=== PATIENT | female | born 2000 | race Caucasian/White ===

== ENCOUNTER 2020-07-17 22:55 | Emergency (ER) | payer BC ==
--- NOTE | 2020-07-17 23:59 | EDM.PDOC ---
ED HPI GENERAL MEDICAL PROBLEM - General Chief Complaint: GRANITE CUTTER Problem Stated Complaint: 18 WEEKS PAIN BY BELLY BUTTON Time Seen by Provider: 07/17/20 22:58 - History of Present Illness INITIAL COMMENTS - FREE TEXT/NARRATIVE: Patient is an otherwise well 20-year-old female G1, P0 at not quite 18 weeks gestation who is presenting with 3 days of a periumbilical discomfort that she describes as a pulling that worsens when she tries to lay on either side and improves when she lays on her back no nausea or vomiting no fevers no chills no chest pain or shortness of breath no prior abdominal surgeries. Patient has fol low-up with Dr. Johnson is her OB. Her next appointment is July 29. Middle Abdomen Pain Score (Numeric/FACES): 6 - Related Data Allergies Allergy/AdvReac Type Severity Reaction Status Date / Time No Known Allergies Allergy Verified 07/17/20 23:45 Home Meds: Home Meds Amoxicillin/Potassium Clav [Amoxicillin-Clav ER 1,000-62.5] 1 each PO BID 7 Days #14 tab.er.12h 07/18/20 [Rx] Past Medical History - Past Health History Medical/Surgical History: Denies Medical/Surgical History Respiratory History: Reports: Asthma GRANITE CUTTER History: Reports: Other GRANITE CUTTER History: 18 wks Social & Family History - Family History Family Medical History: No Pertinent Family History - Tobacco Use Tobacco Use Status *Q: Never Tobacco User Second Hand Smoke Exposure: No - Recreational Drug Use Recreational Drug Use: No ED ROS GENERAL - Review of Systems Review Of Systems: See Below Free Text/Narrative/Comment: General: No fever. Skin: No rash. Eyes: No vision problems. ENT: No sore throat. Neck: No neck stiffness. Respiratory: No shortness of breath. Cardiac: No chest pain. Gastrointestinal: No nausea, vomiting or abdominal pain. Urinary: No dysuria. Musculoskeletal: No myalgias/arthralgias. Neurologic: No headache. ED EXAM, GENERAL - Physical Exam Exam: See Below Free Text/Narrative:: General Appearance: No acute distress, appears comfortable Skin: No rash HEENT: Normocephalic/atraumatic, sclera anicteric, mucous membranes moist Neck: Normal range of motion Chest and Lungs: Bilateral breath sounds, clear to auscultation Cardiovascular: Regular rate and rhythm, no murmur Abdomen: Soft, palpable nontender fundus Neurologic: Awake, alert, no obvious deficits, moving all extremities Psychiatric: Appropriate, cooperative Course - Vital Signs Last Recorded V/S: Last Vital Signs Temp 97.2 F 07/17/20 23:38 Pulse 95 07/18/20 01:06 Resp 18 07/18/20 01:06 BP 128/78 07/18/20 01:06 Pulse Ox 100 07/18/20 01:06 - Orders/Labs/Meds Labs: Laboratory Tests 07/17/20 07/18/20 07/18/20 Range/Units 23:45 00:15 00:15 WBC 8.48 (4.0-11.0) K/uL RBC 4.12 L (4.30-5.90) M/uL Hgb 12.4 (12.0-16.0) g/dL Hct 35.9 L (36.0-46.0) % MCV 87.1 (80.0-98.0) fL MCH 30.1 (27.0-32.0) pg MCHC 34.5 (31.0-37.0) g/dL RDW Std Deviation 39.4 (28.0-62.0) fl RDW Coeff of Donna 13 (11.0-15.0) % Plt Count 246 (150-400) K/uL MPV 10.20 (7.40-12.00) fL Neut % (Auto) 63.6 (48.0-80.0) % Lymph % (Auto) 28.1 (16.0-40.0) % [place] % (Auto) 6.7 (0.0-15.0) % Eos % (Auto) 1.2 (0.0-7.0) % Baso % (Auto) 0.4 (0.0-1.5) % Neut # (Auto) 5.4 (1.4-5.7) K/uL Lymph # (Auto) 2.4 (0.6-2.4) K/uL [place] # (Auto) 0.6 (0.0-0.8) K/uL Eos # (Auto) 0.1 (0.0-0.7) K/uL Baso # (Auto) 0.0 (0.0-0.1) K/uL Sodium 136 (136-145) mmol/L Potassium 4.1 (3.5-5.1) mmol/L Chloride 104 (98-107) mmol/L Carbon Dioxide 22.9 (21.0-32.0) mmol/L BUN 14 (7.0-18.0) mg/dL Creatinine 0.5 L (0.6-1.0) mg/dL Est Cr Clr Drug Dosing TNP Estimated GFR (MDRD) > 60.0 ml/min Glucose 98 (74-106) mg/dL Calcium 8.3 L (8.5-10.1) mg/dL Total Bilirubin 0.2 (0.2-1.0) mg/dL AST 12 L (15-37) IU/L ALT 32 (14-63) IU/L Alkaline Phosphatase 33 L (46-116) U/L Total Protein 6.6 (6.4-8.2) g/dL Albumin 2.9 L (3.4-5.0) g/dL Globulin 3.7 (2.6-4.0) g/dL Albumin/Globulin Ratio 0.8 L (0.9-1.6) Urine Color YELLOW Urine Appearance CLEAR Urine pH 6.5 (5.0-8.0) Ur Specific [place] 1.025 (1.001-1.035) Urine Protein NEGATIVE (NEGATIVE) mg/dL Urine Glucose (UA) NEGATIVE (NEGATIVE) mg/dL Urine Ketones NEGATIVE (NEGATIVE) mg/dL Urine Occult Blood NEGATIVE (NEGATIVE) Urine Nitrite NEGATIVE (NEGATIVE) Urine Bilirubin NEGATIVE (NEGATIVE) Urine Urobilinogen 0.2 (<2.0) EU/dL Ur Leukocyte Esterase NEGATIVE (NEGATIVE) Urine RBC NONE SEEN (0-2/HPF) Urine WBC 0-3 (0-5/HPF) Ur Epithelial Cells FEW (NONE-FEW) Urine Bacteria OCCASIONAL (NEGATIVE) Departure - Departure Time of Disposition: 02:00 Disposition: Home, Self-Care 01 Condition: Good Clinical Impression: Asymptomatic bacteriuria during , Abdominal wall abscess - Discharge Information *PRESCRIPTION DRUG MONITORING PROGRAM REVIEWED*: Not Applicable *COPY OF PRESCRIPTION DRUG MONITORING REPORT IN PATIENT PENELOPE: Not Applicable Prescriptions: Amoxicillin/Potassium Clav [Amoxicillin-Clav ER 1,000-62.5] 1 each PO BID 7 Days #14 tab.er.12h Referrals: Homer Altman MD [Primary Care Provider] - Forms: ED Department Discharge Additional Instructions: Your ultrasound showed a collection of fluid in your abdominal wall where you are tender that could represent an abdominal wall abscess. For this reason you have been placed on Augmentin. Please note that a prescription for Keflex was erroneously sent to [facility] pharmacy as well. Please do not fill the Keflex but fill the Augmentin instead. Please call Dr. Johnson's office on Sunday and make an appointment for this coming or Sunday. If you develop worsening pain fevers or chills please call Dr. Johnson's office or return to the ER. The following information is given to patients seen in the emergency department who are being discharged to home. This information is to outline your options for follow-up care. We provide all patients seen in our emergency department with a follow-up referral. The need for follow-up, as well as the timing and circumstances, are variable depending upon the specifics of your emergency department visit. If you don't have a primary care physician on staff, we will provide you with a referral. We always advise you to contact your personal physician following an emergency department visit to inform them of the circumstance of the visit and for follow-up with them and/or the need for any referrals to a consulting specialist. The emergency department will also refer you to a specialist when appropriate. This referral assures that you have the opportunity for follow-up care with a specialist. All of these measure are taken in an effort to provide you with optimal care, which includes your follow-up. Under all circumstances we always encourage you to contact your private physician who remains a resource for coordinating your care. When calling for follow-up care, please make the office aware that this follow-up is from your recent emergency room visit. If for any reason you are refused follow-up, please contact the [facility] Emergency Department at and asked to speak to the emergency department charge nurse. Sepsis Event Note (ED) - Evaluation Sepsis Screening Result: No Definite Risk - Focused Exam Vital Signs: Vital Signs Temp Pulse Resp BP Pulse Ox 07/18/20 01:06 95 18 128/78 100 07/17/20 23:38 97.2 F 112 H 16 138/86 100 - Assessment/Plan Assessment:: 20-year-old female presenting with abdominal pain as described. I would favor round ligament pain. However, multiple other etiologies considered as well given the tender fundus abruption could be considered but the patient has no risk factors for this. No fevers or chills over suggest appendicitis no inferior abdominal tenderness or right lower quadrant tenderness. Biliary pathology considered but no nausea or vomiting and no right upper quadrant findings on exam. Given her labs including urinalysis and ultrasound been ordered. If these are unremarkable the patient likely safe for discharge. No findings that would suggest pyelonephritis. No vaginal bleeding or discharge that would suggest threatened AB or need for pelvic exam. 0156: Patient's ultrasound demonstrates a single live intrauterine . It also shows a contained fluid collection in the anterior abdominal wall that is consistent with an abdominal wall abscess. There is no fever there is no white count there is focal tenderness in that region. However there are no overlying skin changes. I discussed this in full with Dr. Jones who is covering for Dr. Johnson. Given the lack of any leukocytosis lack of fever and lack of overlying skin changes would not plan to attempt any type of drainage at this time. At the same time additional imaging is unlikely to further define this lesion. We will start the patient on Augmentin. The patient will follow up in their clinic on or Sunday of this week for reassessment and repeat ultrasound. This was discussed with the patient in detail she expressed understanding.
[2020-07-18 00:42] LABS: BLOOD UREA NITROGEN,BUN 14 mg/dL (7.0-18.0); CARBON DIOXIDE,CO2 22.9 mmol/L (21.0-32.0); CHLORIDE,CL 104 mmol/L (98-107); GLUCOSE RANDOM 98 mg/dL (74-106); POTASSIUM,K 4.1 mmol/L (3.5-5.1); SODIUM,NA 136 mmol/L (136-145)
--- NOTE | 2020-07-18 01:40 | US ---
INDICATION: Midline periumbilical pain/fundal tenderness. TECHNIQUE: Limited transabdominal two-dimensional grayscale ultrasound examination. COMPARISON: None FINDINGS: There is a living fetus with gestational age of 17 weeks 6 days by LMP and 18 weeks 3 days by today`s measurements. EDC based on LMP is 12/19/2020. BPD: 4.0 cm, 18 weeks 2 days Head circumference: 15.3 cm, 18 weeks 2 days Abdominal circumference: 12.6 cm, 18 weeks 2 days Femur length: 2.9 cm, 18 weeks 6 days The weight is estimated at 241 grams. The heart rate is measured at 146 beats per minute and the rhythm appears regular. The amniotic fluid volume is within normal limits. The placenta is anterior and superior to the cervical os. There is no evidence of previa. Superior to the umbilicus and apparently within the abdominal wall is a 5.7 x 2.3 x 1.5 cm fluid collection with mixed echogenicity and a relatively thick, hyperemic wall. Appearance is concerning for abscess. IMPRESSION: 1. Living fetus with gestational age of 17 weeks 6 days by LMP and 18 weeks 3 days by today`s measurements. EDC based on LMP is 12/19/2020. 2. 5.7 x 2.3 x 1.5 cm supraumbilical fluid collection apparently located in the abdominal wall and concerning for an abscess. Dictated by Minh Mace MD @ Jul 19 2020 8:24AM Signed by Dr. Minh Mace @ Jul 19 2020 8:32AM
[2020-07-18] MEDS ORDERED: Amoxicillin/Clavulanate K 875-125 MG Tab PO ONE (01:59)
== END 2020-07-18 02:13 | disposition home or self-care (01) ==
LOC: MW.ED 22:55
DX: O99.712 Diseases of the skin and subcutaneous tissue complicating pregnancy, second trimester (principal); L02.211 Cutaneous abscess of abdominal wall; O99.891 Other specified diseases and conditions complicating pregnancy; R82.71 Bacteriuria; O99.512 Diseases of the respiratory system complicating pregnancy, second trimester; J45.909 Unspecified asthma, uncomplicated; Z3A.18 18 weeks gestation of pregnancy
CPT/HCPCS: 36415; 76815; 80053; 81001; 85025; 99284; A9270

== ENCOUNTER 2020-12-09 11:10 | Inpatient (IN) | payer BC ==
[2020-12-09] MEDS ORDERED: Sodium Chloride 0.9% 10 ML Syringe FLUSH PRN (11:37)
[2020-12-09] MEDS ORDERED: Sodium Chloride 0.9% 2.5 ML Syringe FLUSH PRN (11:37)
[2020-12-09] MEDS ORDERED: Methylergonovine 0.2 MG/1 ML Amp IM PRN (11:37)
[2020-12-09] MEDS ORDERED: Terbutaline 1 MG/ML SDV SUBCUT PRN (11:37)
[2020-12-09] MEDS ORDERED: Sodium Chloride 0.9% 10 ML SDV IV PRN (11:37)
[2020-12-09] MEDS ORDERED: Tranexamic Acid 1,000 MG in Sodium Chloride 0.9% 100 ML IV PRN (11:37)
[2020-12-09] MEDS ORDERED: Water For Irrigation,Sterile 1,000 ML Container IRR PRN (11:37)
[2020-12-09] MEDS ORDERED: Nalbuphine 10 MG/1 ML Vial IVPUSH PRN (11:37)
[2020-12-09] MEDS ORDERED: Ondansetron 4 MG/2 ML SDV IVPUSH PRN (11:37)
[2020-12-09] MEDS ORDERED: Misoprostol 200 MCG Tab PO PRN (11:37)
[2020-12-09] MEDS ORDERED: Lidocaine 1% 50 ML MDV INJECT PRN (11:37)
[2020-12-09] MEDS ORDERED: Butorphanol 1 MG/ML SDV IVPUSH PRN (11:37)
[2020-12-09] MEDS ORDERED: Carboprost Tromethamine 250 MCG/1 ML Amp IM PRN (11:37)
[2020-12-09] MEDS ORDERED: Oxytocin/0.9 % Sodium Chloride 30 UNIT/500 ML BAG IV SCH ×2 (11:45)
[2020-12-09] MEDS ORDERED: Misoprostol 25 MCG (1/4 of 100 MCG) Tab VAG PRN (12:30)
[2020-12-09 13:50] LABS: BLOOD UREA NITROGEN,BUN 11 mg/dL (7.0-18.0); CARBON DIOXIDE,CO2 23.1 mmol/L (21.0-32.0); CHLORIDE,CL 104 mmol/L (98-107); GLUCOSE RANDOM 78 mg/dL (74-106); POTASSIUM,K 4.3 mmol/L (3.5-5.1); SODIUM,NA 137 mmol/L (136-145)
[2020-12-09] MEDS: Misoprostol 25 MCG (1/4 of 100 MCG) Tab VAG PRN ×2 (16:59→21:47)
[2020-12-09] MEDS: Lactated Ringers 1,000 ML IV SCH (23:18)
[2020-12-09] MEDS ORDERED: Ropivacaine HCl/PF 200 ML ONE (23:50)
[2020-12-09] MEDS ORDERED: Bupivacaine 0.25% 10 ML SDV ONE (23:50)
--- NOTE | 2020-12-10 00:23 | PCM.PREANE ---
Preanesthetic Assessment - Anesthesia/Transfusion/Family Hx Anesthesia History: No Prior Anesthesia Family History of Anesthesia Reaction: No Transfusion History: No Prior Transfusion(s) - Physical Assessment NPO Status Date: 12/10/20 NPO Status Time: 00:00 Height: 5 ft 4 in Weight: 279 lb ASA Class: 2 Airway Class: Mallampati = 3 - Lab Values: Laboratory Last Values WBC 7.82 K/uL (4.0-11.0) 12/09/20 11:44 RBC 4.44 M/uL (4.30-5.90) 12/09/20 11:44 Hgb 13.2 g/dL (12.0-16.0) 12/09/20 11:44 Hct 38.3 % (36.0-46.0) 12/09/20 11:44 MCV 86.3 fL (80.0-98.0) 12/09/20 11:44 MCH 29.7 pg (27.0-32.0) 12/09/20 11:44 MCHC 34.5 g/dL (31.0-37.0) 12/09/20 11:44 RDW Std Deviation 44.2 fl (28.0-62.0) 12/09/20 11:44 RDW Coeff of Donna 14 % (11.0-15.0) 12/09/20 11:44 Plt Count 217 K/uL (150-400) 12/09/20 11:44 MPV 11.60 fL (7.40-12.00) 12/09/20 11:44 Nucleated RBC % 0.0 /100WBC 12/09/20 11:44 Nucleated RBCs # 0 K/uL 12/09/20 11:44 Sodium 137 mmol/L (136-145) 12/09/20 11:44 Potassium 4.3 mmol/L (3.5-5.1) 12/09/20 11:44 Chloride 104 mmol/L (98-107) 12/09/20 11:44 Carbon Dioxide 23.1 mmol/L (21.0-32.0) 12/09/20 11:44 BUN 11 mg/dL (7.0-18.0) 12/09/20 11:44 Creatinine 0.5 mg/dL (0.6-1.0) L 12/09/20 11:44 Est Cr Clr Drug Dosing 152.40 mL/min 12/09/20 11:44 Estimated GFR (MDRD) > 60.0 ml/min 12/09/20 11:44 Glucose 78 mg/dL (74-106) 12/09/20 11:44 Uric Acid 3.9 mg/dL (2.6-7.2) 12/09/20 11:44 Calcium 9.1 mg/dL (8.5-10.1) 12/09/20 11:44 Total Bilirubin 0.4 mg/dL (0.2-1.0) 12/09/20 11:44 AST 17 IU/L (15-37) 12/09/20 11:44 ALT 24 IU/L (14-63) 12/09/20 11:44 Alkaline Phosphatase 289 U/L (46-116) H 12/09/20 11:44 Total Protein 5.9 g/dL (6.4-8.2) L 12/09/20 11:44 Albumin 2.7 g/dL (3.4-5.0) L 12/09/20 11:44 Globulin 3.2 g/dL (2.6-4.0) 12/09/20 11:44 Albumin/Globulin Ratio 0.8 (0.9-1.6) L 12/09/20 11:44 Ur Random Creatinine 74.0 mg/dL 12/09/20 11:44 U Random Total Protein 14.1 mg/dL (<11.9) H 12/09/20 11:44 Protein/Creatinin Ratio 0.2 12/09/20 11:44 SARS-CoV-2 RNA (ZULEYKA) NEGATIVE (NEGATIVE) 12/09/20 11:44 Blood Type A POSITIVE 12/09/20 11:44 Antibody Screen NEGATIVE 12/09/20 11:44 - Allergies Allergies/Adverse Reactions: Allergies Allergy/AdvReac Type Severity Reaction Status Date / Time No Known Allergies Allergy Verified 07/17/20 23:45 - Blood Blood Available: Yes Product(s) Available: None, PRBC - Anesthesia Plan Pre-Op Medication Ordered: None - Acknowledgements Anesthesia Type Planned: Epidural Pt an Appropriate Candidate for the Planned Anesthesia: Yes Alternatives and Risks of Anesthesia Discussed w Pt/Guardian: Yes Pt/Guardian Understands and Agrees with Anesthesia Plan: Yes PreAnesthesia Questionnaire - Past Health History Medical/Surgical History: Denies Medical/Surgical History Respiratory History: Reports: Asthma Other Respiratory History: "Last used albuterol inhaler prior to " [employer] 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 OB/BYN History: 18 wks - Past Surgical History Respiratory Surgical History: Reports: None Neurological Surgical History: Reports: None - SUBSTANCE USE Tobacco Use Status *Q: Never Tobacco User Tobacco Use Within Last Twelve Months: No Second Hand Smoke Exposure: No Recreational Drug Use History: Yes Recreational Drug Type: Reports: Marijuana/Hashish - HOME MEDS Home Medications: Home Meds Amoxicillin/Potassium Clav [Amoxicillin-Clav ER 1,000-62.5] 1 each PO BID 7 Days #14 tab.er.12h 07/18/20 [Rx] - CURRENT (IN HOUSE) MEDS Current Meds: Current Medications Butorphanol Tartrate (Butorphanol 1 Mg/Ml Sdv) 1 mg IVPUSH Q1H PRN PRN Reason: Pain (severe 7-10) Carboprost Tromethamine (Carboprost Tromethamine 250 Mcg/1 Ml Amp) 250 mcg IM ASDIRECTED PRN PRN Reason: Post Hemorrhage Oxytocin/Sodium Chloride (Oxytocin 30 Unit/500 Ml-Ns) 30 unit in 500 mls @ 999 mls/hr IV TITRATE AMRIT Tranexamic Acid 1,000 mg/ (Sodium Chloride) 110 mls @ 660 mls/hr IV ONETIME PRN PRN Reason: Bleeding Oxytocin/Sodium Chloride (Oxytocin 30 Unit/500 Ml-Ns) 30 unit in 500 mls @ 2 mls/hr IV TITRATE AMRIT; Protocol Lactated Ringer's (Ringers, Lactated) 1,000 mls @ 150 mls/hr IV ASDIRECTED AMRIT Last Admin: 12/09/20 23:18 Dose: 999 mls/hr Documented by: Lidocaine HCl (Lidocaine 1% 50 Ml Mdv) 50 ml INJECT ONETIME PRN PRN Reason: Laceration repair Methylergonovine Maleate (Methylergonovine 0.2 Mg/1 Ml Amp) 0.2 mg IM ASDIRECTED PRN PRN Reason: Post Hemorrhage Misoprostol (Misoprostol 200 Mcg Tab) 200 mcg PO ONETIME PRN PRN Reason: Post Hemorrhage Misoprostol (Misoprostol 25 Mcg (1/4 Of 100 Mcg) Tab) 25 mcg VAG ONETIME PRN PRN Reason: Cervical Ripening Last Admin: 12/09/20 12:54 Dose: 25 mcg Documented by: Misoprostol (Misoprostol 25 Mcg (1/4 Of 100 Mcg) Tab) 25 mcg VAG Q4H PRN PRN Reason: Cervical Ripening Last Admin: 12/09/20 21:47 Dose: 25 mcg Documented by: Nalbuphine HCl (Nalbuphine 10 Mg/1 Ml Vial) 10 mg IVPUSH Q1H PRN PRN Reason: Pain (severe 7-10) Ondansetron HCl (Ondansetron 4 Mg/2 Ml Sdv) 4 mg IVPUSH Q6H PRN PRN Reason: Nausea/Vomiting Sodium Chloride (Sodium Chloride 0.9% 10 Ml Syringe) 10 ml FLUSH ASDIRECTED PRN PRN Reason: Keep Vein Open Sodium Chloride (Sodium Chloride 0.9% 2.5 Ml Syringe) 2.5 ml FLUSH ASDIRECTED PRN PRN Reason: Keep Vein Open Sodium Chloride (Sodium Chloride 0.9% 10 Ml Sdv) 10 ml IV ASDIRECTED PRN PRN Reason: IV Use Sterile Water (Water For Irrigation,Sterile 1,000 Ml Container) 1,000 ml IRR ASDIRECTED PRN PRN Reason: delivery Terbutaline Sulfate (Terbutaline 1 Mg/Ml Sdv) 0.25 mg SUBCUT ASDIRECTED PRN PRN Reason: Tacysystole Discontinued Medications Bupivacaine HCl (Bupivacaine 0.25% 10 Ml Sdv) Confirm Administered Dose 10 ml .ROUTE .STK-MED ONE Stop: 12/09/20 23:51 Ropivacaine (Naropin 0.2%) Confirm Administered Dose 200 mls @ as directed .ROUTE .STK-MED ONE Stop: 12/09/20 23:51 - Pre-Procedure Checklist Attending Provider Aware: Yes Chart Reviewed: Yes Consent Signed: Yes Labs Reviewed: Yes VS/FHR Reviewed: Yes Patient Identification Confirmation Method: Reports: Verbal Patient Pt an Appropriate Candidate for the Planned Anesthesia: Yes Alternatives and Risks of Anesthesia Discussed w Pt/Guardian: Yes - Procedure Procedure Start Date: 12/09/20 Procedure Start Time: 23:[address]: Reports: Blood Pressure, Heart Rate, SPO2 Functional IV: Yes Safety Measures: Reports: Patient Identified, Procedure Verified, Site Verified, Procedure Time Out Patient Position: Reports: Sitting Prep: Reports: Betadine x3, Sterile Drape Local Anesthetic: Reports: Intradermal Wheal w Lidocaine 1% Regional Placement Level: Reports: L3-4 Needle: Reports: 17 g Touhy Approach: Reports: Midline Technique: Reports: ABRAHAM Plastic Syringe Parasthesia: Reports: None Fluid Obtained: Reports: None Test Dose Time: 00:01 Test Dose Medication: Reports: Lidocaine 1.5% w Epinephrine 1:200,000 Test Dose Response: Reports: Negative Loading Dose Time: 00:00 Loading Dose Medication: bupivicaine 0.25% 10cc Loading Dose Patient Position: sitting Continuous Infusion Start Time: 00:10 Continuous Infusion Medication: ropivicaine 0.2% Continuous Infusion Rate: 16 Continuous Infusion PCS Bolus Option: 4 Continuous Infusion Lockout Dose (cc/hr): 32 Patient Position Post Placement: Reports: Supline/CATARINO VS and FHR Monitored in Unit Post Placement: Yes Procedure End Date: 12/10/20 Procedure End Time: 00:53
[2020-12-10] MEDS: Lactated Ringers 1,000 ML IV SCH (06:36)
[2020-12-10] MEDS ORDERED: Bisacodyl 10 MG Supp RECTAL PRN (08:11)
[2020-12-10] MEDS ORDERED: Ibuprofen 400 MG Tab PO PRN (08:11)
[2020-12-10] MEDS ORDERED: oxyCODONE 5 MG Tab PO PRN (08:11)
[2020-12-10] MEDS ORDERED: Docusate Sodium 100 MG Cap PO PRN (08:11)
[2020-12-10] MEDS ORDERED: Lanolin 100% Cream 7 GM Tube TOP PRN (08:11)
[2020-12-10] MEDS ORDERED: Acetaminophen 500 MG Tab PO PRN (08:11)
[2020-12-10] MEDS ORDERED: Ibuprofen 800 MG Tab PO PRN (08:11)
[2020-12-10] MEDS: Acetaminophen 500 MG Tab PO PRN ×2 (09:57→14:12)
[2020-12-10] MEDS: Benzocaine/Menthol 20%-0.5% Spray 78 GM Cannister TOP PRN (09:58)
[2020-12-10] MEDS: Witch Hazel Medicated Pads 40/Jar TOP PRN ×2 (09:59→17:38)
--- NOTE | 2020-12-10 13:53 | OR ---
SURGEON: Milan Vazquez MD DATE OF PROCEDURE: 12/10/2020 INDICATIONS FOR PROCEDURE: A 20-year-old G1, P0 at 38 weeks and 0 days, admitted for induction of labor for gestational hypertension. The patient was found to have mildly elevated blood pressures in the office. She was not symptomatic for preeclampsia. Labs were completed, which were normal. was complicated by obesity, intrauterine growth restriction with abdominal circumference measuring 9th percentile. She also had left ventricular echogenic focus, otherwise had normal anatomy ultrasound. She received 3 doses of Cytotec for induction of labor and became 3cm dilated. She then received Pitocin started progressing quickly. She also received an epidural with good pain control. When she was around 5 cm, she started to have variable decelerations that would respond to repositioning. She became fully dilated. AROM was performed with clear fluid. She then quickly made descent and began pushing with contractions. PREOPERATIVE DIAGNOSES: 1. Sage intrauterine at 38 weeks and 0 days. 2. Gestational hypertension. 3. Intrauterine growth restriction. 4. Recurrent variable decelerations. POSTOPERATIVE DIAGNOSES: 1. Sage intrauterine at 38 weeks and 0 days. 2. Gestational hypertension. 3. Intrauterine growth restriction. 4. Recurrent variable decelerations. PROCEDURE PERFORMED: 1. Normal spontaneous vaginal delivery. 2. Repair of first-degree laceration. FINDINGS: Viable male infant, scores of 7 and 9. weight of 2890 g. A true knot was noted in the umbilical cord. ANESTHESIOLOGIST: Dr. Hermilo Gill. ANESTHESIA: Epidural. ESTIMATED BLOOD LOSS: 200 mL. DESCRIPTION OF PROCEDURE: The patient pushed with contractions for approximately 30 minutes, had good descent. The head delivered in occiput anterior position, restituted ROT. Anterior shoulder delivered easily followed by posterior shoulder and remaining body. No nuchal cord was noted. There was a true knot that was loosely tied in the umbilical cord. The baby was pink, crying, and moving all extremities immediately after delivery. The umbilical cord was clamped and cut after 60 seconds and no longer pulsating. Umbilical cord gases were obtained. Placenta was removed with gentle traction on the umbilical cord, was examined to be intact with 3-vessel cord. Vagina and perineum were examined. She had a first-degree laceration that was repaired with 0 Vicryl in usual fashion. Hemostasis was confirmed after the repair. The fundus was firm at the umbilicus and the bleeding was light. The patient tolerated the procedure well, was given care instructions. REBECCA BURNS /[id number] MTDD
[2020-12-11 05:47] LABS: BLOOD UREA NITROGEN,BUN 12 mg/dL (7.0-18.0); CARBON DIOXIDE,CO2 24.6 mmol/L (21.0-32.0); CHLORIDE,CL 108 mmol/L (98-107); GLUCOSE RANDOM 94 mg/dL (74-106); POTASSIUM,K 4.5 mmol/L (3.5-5.1); SODIUM,NA 141 mmol/L (136-145)
--- NOTE | 2020-12-11 06:36 | PCM.PNPP ---
- General Info Date of Service: 12/11/20 Subjective Update: 20yo P1 s/p PPD1 Denies any complain, denies headache , RUQ pain and BV . BP 120 -150s/60s- 80s Bottlefeeding Normal lochia Functional Status: Reports: Pain Controlled, Tolerating Diet, Ambulating, Urinating - Review of Systems General: Reports: No Symptoms HEENT: Reports: No Symptoms Pulmonary: Reports: No Symptoms Cardiovascular: Reports: No Symptoms Gastrointestinal: Reports: No Symptoms Genitourinary: Reports: No Symptoms Musculoskeletal: Reports: No Symptoms Skin: Reports: No Symptoms Neurological: Reports: No Symptoms Psychiatric: Reports: No Symptoms - General Info Date of Service: 12/11/20 - Patient Data Vital Signs - Most Recent: Last Vital Signs Temp 36.2 C 12/10/20 20:41 Pulse 90 12/10/20 20:41 Resp 18 12/10/20 20:41 BP 149/85 H 12/11/20 00:30 Pulse Ox 97 12/10/20 20:41 Weight - Most Recent: 126.552 kg I&O - Last 24 Hours: Intake & Output 12/10/20 12/10/20 12/11/20 14:59 22:59 06:59 Intake Total 950 Balance 950 Lab Results - Last 24 Hours: Laboratory Results - last 24 hr 12/11/20 12/11/20 Range/Units 04:55 04:55 WBC 8.66 (4.0-11.0) K/uL RBC 3.69 L (4.30-5.90) M/uL Hgb 11.2 L (12.0-16.0) g/dL Hct 32.5 L (36.0-46.0) % MCV 88.1 (80.0-98.0) fL MCH 30.4 (27.0-32.0) pg MCHC 34.5 (31.0-37.0) g/dL RDW Std Deviation 45.9 (28.0-62.0) fl RDW Coeff of Donna 14 (11.0-15.0) % Plt Count 206 (150-400) K/uL MPV 11.50 (7.40-12.00) fL Neut % (Auto) 58.3 (48.0-80.0) % Lymph % (Auto) 32.3 (16.0-40.0) % [place] % (Auto) 7.7 (0.0-15.0) % Eos % (Auto) 1.5 (0.0-7.0) % Baso % (Auto) 0.2 (0.0-1.5) % Neut # (Auto) 5.0 (1.4-5.7) K/uL Lymph # (Auto) 2.8 H (0.6-2.4) K/uL [place] # (Auto) 0.7 (0.0-0.8) K/uL Eos # (Auto) 0.1 (0.0-0.7) K/uL Baso # (Auto) 0.0 (0.0-0.1) K/uL Nucleated RBC % 0.0 /100WBC Nucleated RBCs # 0 K/uL Sodium 141 (136-145) mmol/L Potassium 4.5 (3.5-5.1) mmol/L Chloride 108 H (98-107) mmol/L Carbon Dioxide 24.6 (21.0-32.0) mmol/L BUN 12 (7.0-18.0) mg/dL Creatinine 0.6 (0.6-1.0) mg/dL Est Cr Clr Drug Dosing 127.00 mL/min Estimated GFR (MDRD) > 60.0 ml/min Glucose 94 (74-106) mg/dL Calcium 8.1 L (8.5-10.1) mg/dL Total Bilirubin 0.3 (0.2-1.0) mg/dL AST 24 (15-37) IU/L ALT 24 (14-63) IU/L Alkaline Phosphatase 217 H (46-116) U/L Total Protein 5.4 L (6.4-8.2) g/dL Albumin 2.3 L (3.4-5.0) g/dL Globulin 3.1 (2.6-4.0) g/dL Albumin/Globulin Ratio 0.7 L (0.9-1.6) Med Orders - Current: Current Medications Acetaminophen (Acetaminophen 500 Mg Tab) 500 mg PO Q4H PRN PRN Reason: Pain (mild 1-3) Acetaminophen (Acetaminophen 500 Mg Tab) 1,000 mg PO Q4H PRN PRN Reason: Pain (mild 1-3) Last Admin: 12/10/20 14:12 Dose: 1,000 mg Documented by: Benzocaine/Menthol (Benzocaine/Menthol 20%-0.5% [place] 78 Gm Cannister) 78 gm TOP ASDIRECTED PRN PRN Reason: Perineal Comfort Measure Last Admin: 12/10/20 09:58 Dose: 1 bottle Documented by: Bisacodyl (Bisacodyl 10 Mg Supp) 10 mg RECTAL ONETIME PRN PRN Reason: Constipation Docusate Sodium (Docusate Sodium 100 Mg Cap) 100 mg PO Q12H PRN PRN Reason: Constipation Last Admin: 12/10/20 17:38 Dose: 100 mg Documented by: Emollient Ointment (Lanolin 100% Cream 7 Gm Tube) 0 gm TOP ASDIRECTED PRN PRN Reason: Sore Nipples Ibuprofen (Ibuprofen 400 Mg Tab) 400 mg PO Q4H PRN PRN Reason: Pain (mild 1-3) Ibuprofen (Ibuprofen 800 Mg Tab) 800 mg PO Q6H PRN PRN Reason: Pain (mild 1-3) Last Admin: 12/10/20 14:11 Dose: 800 mg Documented by: Oxycodone HCl (Oxycodone 5 Mg Tab) 5 mg PO Q2H PRN PRN Reason: Pain (severe 7-10) Sodium Chloride (Sodium Chloride 0.9% 10 Ml Syringe) 10 ml FLUSH ASDIRECTED PRN PRN Reason: Keep Vein Open Sodium Chloride (Sodium Chloride 0.9% 2.5 Ml Syringe) 2.5 ml FLUSH ASDIRECTED PRN PRN Reason: Keep Vein Open Sodium Chloride (Sodium Chloride 0.9% 10 Ml Sdv) 10 ml IV ASDIRECTED PRN PRN Reason: IV Use Witch Senait (Witch Senait Medicated Pads 40/Jar) 1 pad TOP ASDIRECTED PRN PRN Reason: comfort care Last Admin: 12/10/20 17:38 Dose: 1 pad Documented by: Discontinued Medications Bupivacaine HCl (Bupivacaine 0.25% 10 Ml Sdv) Confirm Administered Dose 10 ml .ROUTE .STK-MED ONE Stop: 12/09/20 23:51 Butorphanol Tartrate (Butorphanol 1 Mg/Ml Sdv) 1 mg IVPUSH Q1H PRN PRN Reason: Pain (severe 7-10) Carboprost Tromethamine (Carboprost Tromethamine 250 Mcg/1 Ml Amp) 250 mcg IM ASDIRECTED PRN PRN Reason: Post Hemorrhage Oxytocin/Sodium Chloride (Oxytocin 30 Unit/500 Ml-Ns) 30 unit in 500 mls @ 999 mls/hr IV TITRATE AMRIT Tranexamic Acid 1,000 mg/ (Sodium Chloride) 110 mls @ 660 mls/hr IV ONETIME PRN PRN Reason: Bleeding Oxytocin/Sodium Chloride (Oxytocin 30 Unit/500 Ml-Ns) 30 unit in 500 mls @ 2 mls/hr IV TITRATE AMRIT; Protocol Last Titration: 12/10/20 07:40 Dose: 999 munits/min, 999 mls/hr Documented by: Lactated Ringer's (Ringers, Lactated) 1,000 mls @ 150 mls/hr IV ASDIRECTED AMRIT Last Infusion: 12/10/20 07:01 Dose: 150 mls/hr Documented by: Ropivacaine (Naropin 0.2%) Confirm Administered Dose 200 mls @ as directed .KARLOS JoinerRUST-MED ONE Stop: 12/09/20 23:51 Lidocaine HCl (Lidocaine 1% 50 Ml Mdv) 50 ml INJECT ONETIME PRN PRN Reason: Laceration repair Methylergonovine Maleate (Methylergonovine 0.2 Mg/1 Ml Amp) 0.2 mg IM ASDIRECTED PRN PRN Reason: Post Hemorrhage Misoprostol (Misoprostol 200 Mcg Tab) 200 mcg PO ONETIME PRN PRN Reason: Post Hemorrhage Misoprostol (Misoprostol 25 Mcg (1/4 Of 100 Mcg) Tab) 25 mcg VAG ONETIME PRN PRN Reason: Cervical Ripening Last Admin: 12/09/20 12:54 Dose: 25 mcg Documented by: Misoprostol (Misoprostol 25 Mcg (1/4 Of 100 Mcg) Tab) 25 mcg VAG Q4H PRN PRN Reason: Cervical Ripening Last Admin: 12/09/20 21:47 Dose: 25 mcg Documented by: Nalbuphine HCl (Nalbuphine 10 Mg/1 Ml Vial) 10 mg IVPUSH Q1H PRN PRN Reason: Pain (severe 7-10) Ondansetron HCl (Ondansetron 4 Mg/2 Ml Sdv) 4 mg IVPUSH Q6H PRN PRN Reason: Nausea/Vomiting Last Admin: 12/10/20 07:24 Dose: 4 mg Documented by: Sterile Water (Water For Irrigation,Sterile 1,000 Ml Container) 1,000 ml IRR ASDIRECTED PRN PRN Reason: delivery Terbutaline Sulfate (Terbutaline 1 Mg/Ml Sdv) 0.25 mg SUBCUT ASDIRECTED PRN PRN Reason: Tacysystole - Infant Interaction Support Person: , Mother - Recovery Exam Fundal Tone: Firm Fundal Level: At Umbilicus Fundal Placement: Midline Lochia Amount: Small Lochia Color: Rubra/Red Episiotomy/Laceration: Approximated Bladder Status: Nonpalpable Urinary Elimination: Voided - Exam General: Alert HEENT: Pupils Equal Neck: Supple Lungs: Clear to Auscultation Cardiovascular: Regular Rate, Regular Rhythm GI/Abdominal Exam: Normal Bowel Sounds Neurological: No New Focal Deficit Psy/Mental Status: Alert - Problem List & Annotations (1) Vaginal delivery SNOMED Code(s): 561604830 Code(s): O80 - ENCOUNTER FOR FULL-TERM UNCOMPLICATED DELIVERY Status: Acute Current Visit: Yes - Problem List Review Problem List Initiated/Reviewed/Updated: No - Assessment Assessment:: 20yo P1 s/p PPD1 , GHTN (mild range bps) , Bottlefeeding - Plan Plan:: Routine Discharge home today preclampsia precautions Follow up BP in 1 week
[2020-12-11] MEDS: Benzocaine/Menthol 20%-0.5% Spray 78 GM Cannister TOP PRN (08:13)
[2020-12-11] MEDS: Witch Hazel Medicated Pads 40/Jar TOP PRN (08:14)
== END 2020-12-11 12:10 | disposition home or self-care (01) | DRG 560 ==
LOC: MW.OB 11:10 → MW.OBCHECK 11:10 → MW.OB 11:37 → OBSVTOIN 12-10 08:11 → MW.OB 12-10 13:09
PROVIDERS: ADMIT Obstetrics & Gynecology; ATTEND Obstetrics & Gynecology
PROC: 10E0XZZ Delivery of Products of Conception, External Approach (ICD-10-PCS; principal; 2020-12-10)
PROC: 0HQ9XZZ Repair Perineum Skin, External Approach (ICD-10-PCS; 2020-12-10)
PROC: 10907ZC Drainage of Amniotic Fluid, Therapeutic from Products of Conception, Via Natural or Artificial Opening (ICD-10-PCS; 2020-12-10)
PROC: 3E0R3BZ Introduction of Anesthetic Agent into Spinal Canal, Percutaneous Approach (ICD-10-PCS; 2020-12-10)
PROC: 00HU33Z Insertion of Infusion Device into Spinal Canal, Percutaneous Approach (ICD-10-PCS; 2020-12-10)
DX: O13.4 Gestational [pregnancy-induced] hypertension without significant proteinuria, complicating childbirth (principal); Z3A.38 38 weeks gestation of pregnancy; Z37.0 Single live birth; O36.5930 Maternal care for other known or suspected poor fetal growth, third trimester, not applicable or unspecified; O76 Abnormality in fetal heart rate and rhythm complicating labor and delivery; O70.0 First degree perineal laceration during delivery; O99.214 Obesity complicating childbirth; E66.9 Obesity, unspecified; Z20.822 Contact with and (suspected) exposure to COVID-19
CPT/HCPCS: 36415; 51702; 59025; 59409; 80053; 82570; 84156; 84550; 85025; 85027; 86592; 86850; 86900; 86901; A9270-GY; J2405; J2590; J2795; J3490; J7120; U0002

== ENCOUNTER 2023-09-03 09:59 | Inpatient (IN) | payer BC ==
[2023-09-03] MEDS ORDERED: Water For Irrigation,Sterile 1,000 ML Container IRR PRN (18:30)
[2023-09-03] MEDS ORDERED: Tranexamic Acid IN NACL,ISO-OS 1,000 MG in Premix Bag 1 BAG IV PRN (18:30)
[2023-09-03] MEDS ORDERED: Sodium Chloride 0.9% 20 ML SDV IV PRN (18:30)
[2023-09-03] MEDS ORDERED: Butorphanol 2 MG/ML SDV IVPUSH PRN (18:30)
[2023-09-03] MEDS ORDERED: Sodium Chloride 0.9% 10 ML Syringe FLUSH PRN (18:30)
[2023-09-03] MEDS ORDERED: Ondansetron 4 MG/2 ML SDV IVPUSH PRN (18:30)
[2023-09-03] MEDS ORDERED: Oxytocin/0.9 % Sodium Chloride 30 UNIT/500 ML BAG IV SCH (18:30)
[2023-09-03] MEDS ORDERED: Lidocaine 1% 50 ML MDV INJECT PRN (18:30)
[2023-09-03] MEDS ORDERED: Sodium Chloride 0.9% 2.5 ML Syringe FLUSH PRN (18:30)
[2023-09-03] MEDS ORDERED: Methylergonovine 0.2 MG/1 ML Amp IM PRN (18:30)
[2023-09-03] MEDS ORDERED: Misoprostol 200 MCG Tab PO PRN (18:30)
[2023-09-03] MEDS ORDERED: Carboprost Tromethamine 250 MCG/1 mL Vial IM PRN (18:30)
[2023-09-03] MEDS ORDERED: Terbutaline 1 MG/ML SDV SUBCUT PRN (18:32)
[2023-09-03] MEDS ORDERED: ePHEDrine 50 MG/ML SDV IVPUSH PRN ×2 (20:24)
[2023-09-03] MEDS ORDERED: Phenylephrine HCl 0.5 MG/5 ML AMP IVPUSH PRN (20:24)
[2023-09-03] MEDS ORDERED: Sodium Chloride 0.9% 100 ML ONE (23:44)
[2023-09-03] MEDS ORDERED: Ampicillin 2 GM Vial ONE (23:44)
[2023-09-03] MEDS: Lactated Ringers 1,000 ML IV SCH (23:45)
[2023-09-03] MEDS: Ampicillin 2 GM in Sodium Chloride 0.9% 100 ML IV ONE (23:58)
[2023-09-04 00:13] LABS: HEMATOCRIT 32.3 % (37.0-47.0); HEMOGLOBIN 11.1 g/dL (12.0-16.0); MEAN CORPUSCULAR HEMOGLOBIN 29.2 pg (28.0-32.0); MEAN CORPUSCULAR HGB CONC 34.4 g/dL (32.0-36.0); MEAN PLATELET VOLUME 10.8 fL (9.4-12.3); PLATELET COUNT,PLT 222 K/uL (150-400); WHITE BLOOD CELL COUNT,WBC 8.64 K/uL (3.9-11.3)
[2023-09-04] MEDS: Misoprostol 25 MCG (1/4 of 100 MCG) Tab VAG PRN (00:17)
[2023-09-04] MEDS: Ampicillin 1 GM in Sodium Chloride 0.9% 50 ML IV SCH (04:46)
[2023-09-04] MEDS ORDERED: dexmedeTOMIDine HCl 200 MCG/2 ML SDV ONE (07:19)
[2023-09-04] MEDS: Ropivacaine HCl/PF 400 MG in Premix Bag 1 BAG EPIDUR SCH (07:23)
[2023-09-04] MEDS: Oxytocin/0.9 % Sodium Chloride 30 UNIT/500 ML BAG IV SCH (07:24)
[2023-09-04] MEDS ORDERED: Benzocaine/Menthol 20%-0.5% Spray 78 GM Cannister TOP PRN (09:58)
[2023-09-04] MEDS ORDERED: Witch Hazel Medicated Pads 40/Jar TOP PRN (09:58)
[2023-09-04] MEDS ORDERED: Lanolin 100% Cream 7 GM Tube TOP PRN (09:58)
[2023-09-04] MEDS ORDERED: Ibuprofen 800 MG Tab PO PRN (09:58)
[2023-09-04] MEDS ORDERED: Methylergonovine 0.2 MG/1 ML Amp IM PRN (09:58)
[2023-09-04] MEDS ORDERED: Tranexamic Acid IN NACL,ISO-OS 1,000 MG in Premix Bag 1 BAG IV PRN (09:58)
[2023-09-04] MEDS ORDERED: Docusate Sodium 100 MG Cap PO PRN (09:58)
[2023-09-04 10:36] LABS: PH,UMBILICAL ARTERIAL 7.198 (7.18-7.38); PH,UMBILICAL VENOUS 7.283 (7.25-7.45)
[2023-09-04] MEDS: Acetaminophen 500 MG Tab PO PRN (14:28)
[2023-09-05 06:10] LABS: HEMATOCRIT 30.9 % (37.0-47.0); HEMOGLOBIN 10.4 g/dL (12.0-16.0)
== END 2023-09-05 15:28 | disposition home or self-care (01) | DRG 560 ==
LOC: MW.OB 09:59 → OBSVTOIN 09-04 09:59 → MW.OB 09-04 13:30
PROVIDERS: ADMIT Obstetrics & Gynecology; ATTEND Obstetrics & Gynecology
PROC: 10E0XZZ Delivery of Products of Conception, External Approach (ICD-10-PCS; principal; 2023-09-04)
PROC: 3E033VJ Introduction of Other Hormone into Peripheral Vein, Percutaneous Approach (ICD-10-PCS; 2023-09-04)
PROC: 3E0P7VZ Introduction of Hormone into Female Reproductive, Via Natural or Artificial Opening (ICD-10-PCS; 2023-09-04)
DX: O99.214 Obesity complicating childbirth (principal); O13.4 Gestational [pregnancy-induced] hypertension without significant proteinuria, complicating childbirth; Z3A.38 38 weeks gestation of pregnancy; Z37.0 Single live birth; O69.81X0 Labor and delivery complicated by cord around neck, without compression, not applicable or unspecified; O99.52 Diseases of the respiratory system complicating childbirth; J45.909 Unspecified asthma, uncomplicated
CPT/HCPCS: 01967; 36415; 59025; 59409; 82803; 85014; 85018; 85027; 86592; 86850; 86900; 86901; A9270-GY; J0290; J2590; J2795; J3490; J7120

== ENCOUNTER 2025-03-15 11:33 | Emergency (ER) | payer BC ==
[2025-03-15 12:10] LABS: BASOPHILS ABSOLUTE AUTO 0.09 K/uL (0.00-0.20); BASOPHILS PERCENT AUTO 1.1 % (0.0-1.0); EOSINOPHILS ABSOLUTE AUTO 0.21 K/uL (0.00-0.45); EOSINOPHILS PERCENT AUTO 2.5 % (0.0-6.0); IMMATURE GRAN ABSOLUTE AUTO 0.05 K/uL (0.00-0.05); IMMATURE GRAN PERCENT AUTO 0.6 % (0.0-0.4); LYMPHOCYTES ABSOLUTE AUTO 3.70 K/uL (1.00-4.80); LYMPHOCYTES PERCENT AUTO 43.2 % (24.0-44.0); MEAN PLATELET VOLUME 10.1 fL (9.4-12.3); MONOCYTES ABSOLUTE AUTO 0.58 K/uL (0.00-0.80); MONOCYTES PERCENT AUTO 6.8 % (0.0-8.0); NEUTROPHILS ABSOLUTE AUTO 3.93 K/uL (1.80-7.70); NEUTROPHILS PERCENT AUTO 45.8 % (41.0-71.0); NRBC ABSOLUTE 0.00 K/uL (0.00-0.02); NRBC PERCENT 0.0 /100WBC (0.0-0.2); PLATELET COUNT,PLT 265 K/uL (150-400); RED BLOOD CELL COUNT 4.46 M/uL (4.10-5.30); WHITE BLOOD CELL COUNT,WBC 8.56 K/uL (3.9-11.3)
[2025-03-15 12:31] LABS: A/G RATIO 1.1 (0.9-1.6); ALANINE AMINOTRANSFERASE,ALT 27.0 IU/L (14-63); ASPARTATE AMNIOTRANSFERASE,AST 15.0 IU/L (15-37); BILIRUBIN TOTAL 0.8 mg/dL (0.2-1.0); BLOOD UREA NITROGEN,BUN 17.0 mg/dL (7.0-18.0); CARBON DIOXIDE,CO2 28.6 mmol/L (21.0-32.0); CHLORIDE,CL 103.0 mmol/L (98-107); CREATININE 0.5 mg/dL (0.6-1.0); EST CRCL DRUG DOSING (CG) 141.04 mL/min; GLUCOSE RANDOM 85.0 mg/dL (74-106); POTASSIUM,K 4.1 mmol/L (3.5-5.1); PROTEIN TOTAL,TP 6.2 g/dL (6.4-8.2); SODIUM,NA 139.0 mmol/L (136-145)
[2025-03-15 12:36] LABS: ESTIMATED GFR 133.0 mL/min (>60)
[2025-03-15] MEDS: Magnesium Sulfate 2 GM/50 mL 2 GM in Premix Bag 1 BAG IV ONE (13:31)
[2025-03-15] MEDS: Iopamidol 755 Mg/ML 100 ML Bottle IVPUSH ONE (13:34)
== END 2025-03-15 17:08 | disposition home or self-care (01) ==
LOC: MW.ED 11:33
DX: G40.109 Localization-related (focal) (partial) symptomatic epilepsy and epileptic syndromes with simple partial seizures, not intractable, without status epilepticus (principal); E66.9 Obesity, unspecified; Z68.35 Body mass index [BMI] 35.0-35.9, adult
CPT/HCPCS: 36415; 70450; 70496; 70498; 80053; 82947; 83735; 84484; 84703; 85025; 93005; 96365; 99284; J3475; Q9967; 93010